=== PATIENT | female | born 1955 ===

== ENCOUNTER 2018-02-09 11:46 | Emergency (ER) | payer OTHER ==
[2018-02-09 11:52] VITALS: BMI 26.2
[2018-02-09 13:47] LABS: BASO # 0.1 K/uL (0.0-0.2); EOS % 0.6 % (0.0-4.0); HEMOGLOBIN 12.1 g/dL (12.0-16.0); MEAN CORPUSCULAR HGB CONC 34.4 g/dL (33.0-37.0); MEAN PLATELET VOLUME 9.8 fl (7.2-11.7); MONO # 0.6 K/uL (0.0-0.8); MONO % 9.5 % (0.0-10.0); NEUT # 3.7 K/uL (1.8-7.0); NEUT % 57.9 % (50.0-75.0); NRBC % 0.1 % (0.0-0.0); RBC 3.92 Mil/uL (3.80-5.20); RED CELL DISTRIBUTION WIDTH 13.8 % (11.5-14.5); WHITE BLOOD COUNT 6.4 K/uL (4.8-10.8)
[2018-02-09 13:50] LABS: SQUAMOUS EPITHIAL 1 /hpf (0-5); URINE BACTERIA RARE (<OCC); URINE BILIRUBIN NEGATIVE (NEGATIVE); URINE BLOOD NEGATIVE (NEGATIVE); URINE CLARITY CLEAR (Clear); URINE COLOR STRAW (YELLOW); URINE GLUCOSE (UA) NEG (Normal); URINE LEUKOCYTE ESTERASE NEG Leu/uL (Negative); URINE PROTEIN NEGATIVE (NEGATIVE); URINE UROBILINOGEN 0.2-1.0 mg/dL (0.2-1.0)
[2018-02-09 13:59] LABS: ALB/GLOB RATIO 1.1 (1.0-2.1); ALBUMIN 4.3 g/dL (3.5-5.0); ALT/SGPT 23 U/L (9-52); AST/SGOT 21 U/L (14-36); BLOOD UREA NITROGEN 21 mg/dl (7-17); CALCIUM 10.5 mg/dL (8.4-10.2); GFR NON-AFRICAN AMERICAN 56
[2018-02-09] MEDS ORDERED: Iohexol 300 100 ML IJ ONE (14:26)
[2018-02-09] MEDS ORDERED: Sodium Chloride 0.9% 50 ML IV ONE (14:26)
--- NOTE | 2018-02-09 15:25 | CT ---
Date of service: 02/09/2018 PROCEDURE: CT Abdomen and Pelvis with contrast HISTORY: abd/rectal pain, fissure r/o perirectal abscess COMPARISON: Abdomen pelvis CT without contrast 12/11/2008. TECHNIQUE: Following the intravenous administration of iodinated contrast material, a CT examination of the abdomen and pelvis performed from the domes of the diaphragms to the symphysis pubis with reformatted datasets provided in axial, sagittal and coronal planes. Oral contrast was not administered as per referring physician request. Coronal and sagittal reformats were generated. contrast dose: Omnipaque 300, 99 cc Radiation dose: Total exam DLP = 630.85 mGy-cm. This CT exam was performed using one or more of the following dose reduction techniques: Automated exposure control, adjustment of the mA and/or kV according to patient size, and/or use of iterative reconstruction technique. FINDINGS: LOWER THORAX: Unremarkable. LIVER: Hepatic steatosis identified without intrahepatic biliary dilatation or definitive hepatic mass demonstrated. GALLBLADDER AND BILE DUCTS: Unremarkable. PANCREAS: Unremarkable. No gross lesion or ductal dilatation. SPLEEN: Unremarkable. ADRENALS: Unremarkable. No mass. KIDNEYS AND URETERS: Unremarkable. No hydronephrosis. No solid mass. VASCULATURE: Unremarkable. No aortic aneurysm. BOWEL: Evaluation of the gastrointestinal tract is limited due to the lack of oral contrast administration. No bowel obstruction identified. Moderate retained fecal material seen at the right hemicolon, minimal otherwise. No evidence of peritoneal abscess or definitive perirectal reactive change. APPENDIX: None identified. No CT evidence of appendicitis. Clinically correlate as to potential prior appendectomy. PERITONEUM: Unremarkable. No free fluid. No free air. LYMPH NODES: Unremarkable. No enlarged lymph nodes. BLADDER: Unremarkable. REPRODUCTIVE: Unremarkable. BONES: No acute fracture. OTHER FINDINGS: None. IMPRESSION: No definite acute abdominal or pelvic findings. No perirectal abscess or perirectal inflammation appreciated grossly. Hepatic steatosis.
--- NOTE | 2018-02-09 16:21 | ED PDOC ---
HPI: General Adult Time Seen by Provider: 02/09/18 12:18 Chief Complaint (Nursing): Abdominal Pain Chief Complaint (Provider): rectal pain History Per: Patient History/Exam Limitations: no limitations Current Symptoms Are (Timing): Still Present Severity: Moderate Location: rectal /pelvis Quality: burning Similar Symptoms Previously: + Recent Trauma: denies Additional Complaint(s): 62yo female c/o rectal pain, burning, ongoing for about a week, worse w BM and occassionally saw bright blood in stool. Denies fever, vomiting, urinary symptoms, or weakness. Denies rectal trauma or previous history of rectal abscesses. Knows she has had hemorrhoids in past. Past Medical History Reviewed: Historical Data, Nursing Documentation, Vital Signs Vital Signs: Last Vital Signs Temp 98.7 F 02/09/18 11:53 Pulse 84 02/09/18 11:53 Resp 17 02/09/18 11:53 BP 164/66 H 02/09/18 11:53 Pulse Ox 99 02/09/18 11:53 - Medical History PMH: HTN, Hypothyroidism, Chronic Pain (Chronic neck and shoulder pain ) - Family History Family History: States: Hypertension - Social History Current smoker - smoking cessation education provided: No - Immunization History Hx Tetanus Toxoid Vaccination: No Hx Influenza Vaccination: Yes Hx Pneumococcal Vaccination: No - Home Medications Home Medications: Ambulatory Orders Medication Instructions Recorded Ibuprofen 600 mg PO Q8H PRN #60 tab 06/19/15 Lidocaine 5% [Lidoderm] 1 ea TD DAILY PRN #30 patch 06/19/15 oxyCODONE/Acetaminophen [Percocet 1 tab PO QID PRN #20 tab 06/19/15 5/325 mg Tab] Albuterol 0.5% [Albuterol 0.5% 2.5 mg IH Q6 PRN #1 bottle 04/20/17 Inhal Kiera (2.5 mg/0.5 ml) UD] Benzonatate [Tessalon Perles] 100 mg PO BID PRN #15 sgl 04/20/17 Lisinopril/Hydrochlorothiazide 1 tab PO DAILY 04/20/17 [Lisinopril-Hydrochlorothiazide 25 mg-20 mg] Naproxen 375 mg PO BID PRN #20 tablet 04/20/17 Phenylephrine HCl/Prometh HCl 5 ml PO Q6H 04/20/17 [Promethazine Vc 5 mg/5 ml-6.25 mg/5 ml 473 ml] predniSONE [predniSONE Tab] 40 mg PO DAILY #6 tab 04/20/17 Hydrocortisone 2.5% (Rectal) 1 appl RC BID 5 Days #1 tube 02/09/18 [Anusol-HC] Ibuprofen [Motrin Tab] 600 mg PO Q6 PRN #15 tab 02/09/18 Lidocaine 2% Gel [Xylocaine 2% 1 appl TP TID PRN #1 tub 02/09/18 (Uro-Jet)] - Allergies Allergies/Adverse Reactions: Allergies Allergy/AdvReac Type Severity Reaction Status Date / Time No Known Allergies Allergy Verified 02/09/18 12:15 Review of Systems ROS Statement: Except As Marked, All Systems Reviewed And Found Negative Constitutional: Negative for: Fever Cardiovascular: Negative for: Chest Pain Respiratory: Negative for: Shortness of Breath Gastrointestinal: Positive for: Hematochezia, Rectal Pain. Negative for: Nausea, Vomiting, Abdominal Pain, Hematemesis Genitourinary Female: Positive for: Pelvic Pain. Negative for: Dysuria Musculoskeletal: Negative for: Neck Pain, Back Pain Skin: Negative for: Rash, Lesions Neurological: Negative for: Weakness, Confusion, Seizures, Headache Psych: Negative for: Suicidal ideation Physical Exam - Reviewed Nursing Documentation Reviewed: Yes Vital Signs Reviewed: Yes - Physical Exam Appears: Positive for: Well, Non-toxic, No Acute Distress Head Exam: Positive for: ATRAUMATIC, NORMAL INSPECTION, NORMOCEPHALIC Skin: Positive for: Normal Color, Warm, DRY Eye Exam: Positive for: EOMI, Normal appearance, PERRL ENT: Positive for: Normal ENT Inspection Cardiovascular/Chest: Positive for: Regular Rate, Rhythm Respiratory: Positive for: CNT, Normal Breath Sounds Gastrointestinal/Abdominal: Positive for: Soft. Negative for: Tenderness, Guarding Back: Positive for: Normal Inspection Rectal: Positive for: Rectal Tone Is: (normal), Hemorrhoids, Tenderness Extremity: Positive for: Normal ROM Neurologic/Psych: Positive for: Alert, Oriented. Negative for: Motor/Sensory Deficits - Laboratory Results Result Diagrams: 02/09/18 13:30 02/09/18 13:30 - ECG O2 Sat by Pulse Oximetry: 99 Medical Decision Making Medical Decision Making: workup for pelvic and rectal pain w labs and CT CT pelv neg for perirectal abscess per radiologist labs unremarkable Rx anusol and lidocaine jelly mandatory followup GI Disposition - Clinical Impression Clinical Impression: Rectal pain, Anal fissure, Abdominal pain - Patient ED Disposition Is Patient to be Admitted: No - Disposition Referrals: Kam Casillas MD [Staff Provider] - Disposition Time: 16:15 Additional Instructions: See GI doctor for further testing and treatment. Return to ER for any worse or new symptoms. Use medications as directed for pain. Prescriptions: Hydrocortisone 2.5% (Rectal) [Anusol-HC] 1 appl RC BID 5 Days #1 tube Ibuprofen [Motrin Tab] 600 mg PO Q6 PRN #15 tab PRN Reason: Pain, Moderate (4-7) Lidocaine 2% Gel [Xylocaine 2% (Uro-Jet)] 1 appl TP TID PRN #1 tub PRN Reason: Pain, Moderate (4-7) Instructions: Anal Fissure, Anal Fissure (DC), Acute Abdomen (Belly Pain), Tesfaye lt (DC) Forms: [employer] (Turkmen)
[2018-02-09 17:35] VITALS: RESP 19; TEMP 97
[2018-02-09 17:37] VITALS: BP 134/75; PULSE 79; O2SAT 98
== END 2018-02-09 17:38 | disposition home or self-care (01) ==
LOC: H.ER 11:46
DX: K62.89 Other specified diseases of anus and rectum (principal); K60.2 Anal fissure, unspecified; R10.9 Unspecified abdominal pain; E03.9 Hypothyroidism, unspecified; G89.29 Other chronic pain; I10 Essential (primary) hypertension
CPT/HCPCS: 74177; 80053; 81003; 85025; 99283; Q9967